=== PATIENT | male | born 1935 | race Caucasian/White ===

== ENCOUNTER 2018-09-22 00:37 | Observation (INO) | payer OTHER ==
[2018-09-22] MEDS: DEXTROSE 5%-0.45% NACL 1,000 ML IV ×2 (02:58→17:25)
[2018-09-22] MEDS ORDERED: ALPRAZOLAM 0.25 MG TAB PO (04:30)
[2018-09-22] MEDS ORDERED: NITROGLYCERIN (SL) 0.4 MG TAB SL ×2 (04:30→04:40)
[2018-09-22 05:41] LABS: ADD MAN DIFF? NO
[2018-09-22 05:45] LABS: WHITE BLOOD COUNT 12.3 10^3/ul (4.8-10.8)
[2018-09-22 05:45] LABS: BASOPHILS % 0.2 % (0.0-2.0); EOSINOPHILS # 0.2 10^3/ul (0.0-0.5); EOSINOPHILS % 1.3 % (0.0-7.0); HEMATOCRIT 37.1 % (42.0-52.0); HEMOGLOBIN 12.2 g/dl (14.0-18.0); LYMPHOCYTES # 0.8 10^3/ul (0.8-2.9); LYMPHOCYTES % 6.8 % (15.0-51.0); MEAN CORPUSCULAR HEMOGLOBIN 29.8 pg (29.0-33.0); MEAN CORPUSCULAR HGB CONC 32.9 g/dl (32.0-37.0); MEAN CORPUSCULAR VOLUME 90.7 fl (82.0-101.0); MEAN PLATELET VOLUME 9.8 fl (7.4-10.4); MONOCYTE # 0.6 10^3/ul (0.3-0.9); NEUTROPHIL # 10.6 10^3/ul (1.6-7.5); NEUTROPHILS % 85.7 % (39.0-77.0); PLATELET COUNT 294 10^3/UL (140-415); RED BLOOD COUNT 4.09 10^6/ul (4.70-6.10); RED CELL DISTRIBUTION WIDTH 13.3 % (11.5-14.5)
[2018-09-22] MEDS: PIPER-TAZO 3.375 GM IV (PMX) 100 ML IVPB ×3 (06:12→21:14)
[2018-09-22 06:24] LABS: ANION GAP 9 (5-13); BLOOD UREA NITROGEN 16 mg/dl (7-20); CALCIUM 8.2 mg/dl (8.4-10.2); CARBON DIOXIDE 30 mmol/L (21-31); CHLORIDE 102 mmol/L (97-110); CREATININE 0.47 mg/dl (0.61-1.24); GLUCOSE 130 mg/dl (70-220); POTASSIUM 3.4 mmol/L (3.5-5.1); SODIUM 141 mmol/L (135-144)
[2018-09-22] MEDS: SERTRALINE 100 MG TAB PO (10:47)
[2018-09-22] MEDS: BENZONATATE 100 MG CAP PO ×3 (10:47→21:15)
[2018-09-22] MEDS: FINASTERIDE 5 MG TAB PO (10:47)
[2018-09-22] MEDS: METOPROLOL 25 MG TAB PO ×2 (10:47→21:15)
[2018-09-22] MEDS: FAMOTIDINE 20 MG TAB PO ×2 (10:48→21:14)
[2018-09-22] MEDS: ASPIRIN (EC) 81 MG TAB PO (10:48)
[2018-09-22] MEDS: LACTOBACILLUS RHAMNOSUS CAP PO ×2 (10:48→21:14)
[2018-09-22] MEDS: POTASSIUM CHLORIDE (SR) 20 MEQ TAB PO (10:49)
[2018-09-22] MEDS: ALBUTEROL/IPRATROPIUM (NEB) 3 ML AMP HHN ×3 (13:29→20:42)
[2018-09-22] MEDS: ACETAMINOPHEN 325 MG TAB PO (15:04)
[2018-09-22] MEDS ORDERED: PENDING SANTYL ORDER FOR WOUND CARE XX (17:30)
[2018-09-22] MEDS: ATORVASTATIN 10 MG TAB PO (21:14)
[2018-09-23] MEDS: ALBUTEROL/IPRATROPIUM (NEB) 3 ML AMP HHN ×6 (01:19→20:22)
[2018-09-23] MEDS: DEXTROSE 5%-0.45% NACL 1,000 ML IV ×2 (04:30→17:46)
[2018-09-23] MEDS: PIPER-TAZO 3.375 GM IV (PMX) 100 ML IVPB ×3 (06:08→21:48)
[2018-09-23] MEDS: ACETAMINOPHEN 325 MG TAB PO ×2 (06:42→20:04)
[2018-09-23] MEDS: METOPROLOL 25 MG TAB PO ×2 (08:59→18:44)
[2018-09-23] MEDS: FINASTERIDE 5 MG TAB PO (08:59)
[2018-09-23] MEDS: SERTRALINE 100 MG TAB PO (08:59)
[2018-09-23] MEDS: LACTOBACILLUS RHAMNOSUS CAP PO ×2 (08:59→21:04)
[2018-09-23] MEDS: FAMOTIDINE 20 MG TAB PO ×2 (09:00→21:04)
[2018-09-23] MEDS: BENZONATATE 100 MG CAP PO ×3 (09:00→21:04)
[2018-09-23] MEDS: ASPIRIN (EC) 81 MG TAB PO (09:00)
[2018-09-23] MEDS: ATORVASTATIN 10 MG TAB PO (21:04)
[2018-09-24] MEDS: DEXTROSE 5%-0.45% NACL 1,000 ML IV (00:07)
[2018-09-24] MEDS: ALBUTEROL/IPRATROPIUM (NEB) 3 ML AMP HHN ×5 (01:00→16:31)
[2018-09-24] MEDS: PIPER-TAZO 3.375 GM IV (PMX) 100 ML IVPB ×2 (05:32→13:49)
[2018-09-24] MEDS: METOPROLOL 25 MG TAB PO (08:45)
[2018-09-24] MEDS: ACETAMINOPHEN 325 MG TAB PO (09:12)
[2018-09-24] MEDS: ASPIRIN (EC) 81 MG TAB PO (09:12)
[2018-09-24] MEDS: LACTOBACILLUS RHAMNOSUS CAP PO (09:13)
[2018-09-24] MEDS: FINASTERIDE 5 MG TAB PO (09:13)
[2018-09-24] MEDS: SERTRALINE 100 MG TAB PO (09:13)
[2018-09-24] MEDS: BENZONATATE 100 MG CAP PO ×2 (09:13→12:48)
[2018-09-24] MEDS: FAMOTIDINE 20 MG TAB PO (09:16)
[2018-09-24] MEDS: AMLODIPINE 5 MG TAB PO (09:35)
== END 2018-09-24 16:30 ==
LOC: 6WM 00:37 → PP2 13:09
DX: J18.9 Pneumonia, unspecified organism (principal); I10 Essential (primary) hypertension; E78.5 Hyperlipidemia, unspecified; N40.0 Benign prostatic hyperplasia without lower urinary tract symptoms; R53.81 Other malaise; F32.9 Major depressive disorder, single episode, unspecified; Z79.82 Long term (current) use of aspirin
CPT/HCPCS: 80048; 85025; 92610; 94640; 94664; 97116; 97161; 97530; 99217; G0378

== ENCOUNTER 2019-03-27 07:12 | Emergency (ER) | payer OTHER ==
[2019-03-27 07:53] LABS: ADD MAN DIFF? NO
[2019-03-27] MEDS: IBUPROFEN 200 MG TAB PO (07:53)
[2019-03-27 07:57] LABS: WHITE BLOOD COUNT 6.2 10^3/ul (4.8-10.8)
[2019-03-27 07:57] LABS: BASOPHIL # 0.1 10^3/ul (0.0-0.1); BASOPHILS % 1.3 % (0.0-2.0); EOSINOPHILS # 0.3 10^3/ul (0.0-0.5); HEMATOCRIT 43.4 % (42.0-52.0); HEMOGLOBIN 14.3 g/dl (14.0-18.0); LYMPHOCYTES # 1.3 10^3/ul (0.8-2.9); LYMPHOCYTES % 21.1 % (15.0-51.0); MEAN CORPUSCULAR HEMOGLOBIN 30.3 pg (29.0-33.0); MEAN CORPUSCULAR HGB CONC 32.9 g/dl (32.0-37.0); MEAN CORPUSCULAR VOLUME 91.9 fl (82.0-101.0); MEAN PLATELET VOLUME 9.8 fl (7.4-10.4); MONOCYTE # 0.6 10^3/ul (0.3-0.9); MONOCYTES % 10.2 % (0.0-11.0); NEUTROPHIL # 3.9 10^3/ul (1.6-7.5); NEUTROPHILS % 62.1 % (39.0-77.0); PLATELET COUNT 176 10^3/UL (140-415); RED BLOOD COUNT 4.72 10^6/ul (4.70-6.10); RED CELL DISTRIBUTION WIDTH 13.5 % (11.5-14.5)
[2019-03-27 08:20] LABS: ANION GAP 6 (5-13); BLOOD UREA NITROGEN 25 mg/dl (7-20); CALCIUM 9.3 mg/dl (8.4-10.2); CARBON DIOXIDE 27 mmol/L (21-31); CHLORIDE 107 mmol/L (97-110); CREATININE 0.65 mg/dl (0.61-1.24); GLUCOSE 107 mg/dl (70-220); POTASSIUM 3.9 mmol/L (3.5-5.1); SODIUM 140 mmol/L (135-144)
[2019-03-27] MEDS: HYDROCODONE/APAP (5/325) TAB PO (09:03)
== END 2019-03-27 13:43 | disposition left against medical advice (07) ==
LOC: E/R 07:12
DX: M25.551 Pain in right hip (principal); R40.2142 Coma scale, eyes open, spontaneous, at arrival to emergency department; R40.2252 Coma scale, best verbal response, oriented, at arrival to emergency department; R40.2362 Coma scale, best motor response, obeys commands, at arrival to emergency department; Z79.82 Long term (current) use of aspirin
CPT/HCPCS: 36415; 72192; 73721; 80048; 85025; 99284-25